=== PATIENT | male | born 1980 | race Asian ===

== ENCOUNTER 2018-01-31 18:15 | Outpatient (CLI) | payer OTHER ==
[2018-02-02 08:06] LABS: HEPATITIS B SURFACE AG Negative (Negative); HEPATITIS C VIRUS AB <0.1 s/co ratio (0.0-0.9)
== END 2018-01-31 21:17 | disposition home or self-care (01) ==
LOC: SLB 18:15
PROVIDERS: ATTEND Specialist
DX: Z11.3 Encounter for screening for infections with a predominantly sexual mode of transmission (principal)
CPT/HCPCS: 36415; 86803; 87340